=== PATIENT | female | born 1955 | race Caucasian/White ===

== ENCOUNTER 2020-11-03 10:38 | Emergency (ER) | payer MEDICARE, BC ==
--- NOTE | 2020-11-03 11:43 | EDM.PDOC ---
ED HPI GENERAL MEDICAL PROBLEM - General Chief Complaint: Eye Problems Stated Complaint: INFECTION IN OS EYE Time Seen by Provider: 11/03/20 11:30 Source of Information: Reports: Patient, Family History Limitations: Reports: No Limitations - History of Present Illness INITIAL COMMENTS - FREE TEXT/NARRATIVE: 65-year-old female with worsening vision in her left eye. It started with a scratchy sensation and mild redness last week, she was seen in the clinic and put on antibiotic ointment. The scratchy sensation has improved but her vision has slowly become "milky and cloudy". 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 Onset: Gradual Duration: Day(s): (3 days) Associated Symptoms: Reports: No Other Symptoms. Denies: Headaches, Nausea/Vomiting, Shortness of Breath Left Eye Pain Score (Numeric/FACES): 3 - Related Data Allergies Allergy/AdvReac Type Severity Reaction Status Date / Time No Known Allergies Allergy Verified 11/03/20 11:10 Home Meds: Home Meds Acetaminophen [Tylenol] 650 mg PO Q6H PRN 08/19/20 [History] Albuterol Sulfate [Albuterol Sulfate Hfa] 2 puff IH Q4H PRN 08/19/20 [History] Ascorbic Acid [Vitamin C] 1,000 mg PO DAILY 08/19/20 [History] Balsalazide [Colazal] 3,000 mg PO BID 08/19/20 [History] Betamethasone/Propylene Glyc [Diprolene 0.05%] 1 applic TOP BID 08/19/20 [History] Celecoxib [CeleBREX] 100 mg PO BID 08/19/20 [History] Cetirizine [ZyrTEC] 10 mg PO DAILY 08/19/20 [History] Diclofenac Sodium [Voltaren 1% Gel] 1 applic TOP QID 08/19/20 [History] Multivitamin [Multiple Vitamins] 1 tab PO DAILY 08/19/20 [History] Omeprazole Magnesium [Prilosec Otc] 20 mg PO DAILY 08/19/20 [History] Pramipexole [Mirapex] 0.5 mg PO BEDTIME 08/19/20 [History] Valsartan 160 mg PO DAILY 08/19/20 [History] amLODIPine [Norvasc] 10 mg PO DAILY 08/19/20 [History] estradioL [Estrace] 0.5 mg PO DAILY 08/19/20 [History] medroxyPROGESTERone [Provera] 10 mg PO DAILY 08/19/20 [History] Erythromycin Base [Erythromycin 0.5% Ophth Oint] 1 applic TOP QID 11/03/20 [History] Past Medical History HEENT History: Reports: Cataract, Impaired Vision Other HEENT History: right Cardiovascular History: Reports: Hypertension Respiratory History: Reports: Sleep Apnea Other Respiratory History: c-pap Gastrointestinal History: Reports: Other (See Below) Other Gastrointestinal History: crohns Genitourinary History: Reports: None [employer] History: Reports: Musculoskeletal History: Reports: Arthritis, Other (See Below) Other Musculoskeletal History: bilateral hip pain bursitis Neurological History: Reports: None Psychiatric History: Reports: None Endocrine/Metabolic History: Reports: None Hematologic History: Reports: None Immunologic History: Reports: None Oncologic (Cancer) History: Reports: None Dermatologic History: Reports: Seborrheic Dermatitis - Infectious Disease History Infectious Disease History: Reports: Chicken Pox, Measles - Past Surgical History Other HEENT Surgeries/Procedures: 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 Cardiovascular Surgical History: Reports: None GI Surgical History: Reports: Colonoscopy Female Surgical History: Reports: Tubal Ligation Musculoskeletal Surgical History: Reports: None Social & Family History - Tobacco Use Tobacco Use Status *Q: Never Tobacco User - Caffeine Use Caffeine Use: Reports: Coffee - Recreational Drug Use Recreational Drug Use: No ED ROS GENERAL - Review of Systems Review Of Systems: See Below Constitutional: Denies: Fever, Chills, Malaise HEENT: Reports: Vision Change Respiratory: Reports: No Symptoms Cardiovascular: Reports: No Symptoms GI/Abdominal: Reports: No Symptoms Skin: Reports: No Symptoms Neurological: Denies: Headache ED EXAM GENERAL W FULL EYE - Physical Exam Exam: See Below Exam Limited By: No Limitations General Appearance: Alert, No Apparent Distress Eye Exam: Bilateral Eye: EOMI, Other (Left pupil is reactive, the cornea does not look cloudy) Eyelids: Bilateral: Normal Appearance (No significant erythema or exudate from either eyelids or conjunctiva) Conjunctiva & Sclera: Bilateral: Normal Appearance Extraocular Movements: Bilateral: Intact Head: Atraumatic Respiratory/Chest: No Respiratory Distress Course - Vital Signs Last Recorded V/S: Last Vital Signs Temp 95.5 F L 11/03/20 11:06 Pulse 79 11/03/20 11:06 Resp 16 11/03/20 11:06 BP 169/78 H 11/03/20 11:06 Pulse Ox 98 11/03/20 11:06 - Re-Assessments/Exams Free Text/Narrative Re-Assessment/Exam: 11/03/20 11:43 Ophthalmology consult was obtained from [place]. 11/03/20 12:50 Dr. Magaña kindly agreed to see the patient in 1 hour in [place]. Patient was discharged for the consult. Departure - Departure Time of Disposition: 11:55 Disposition: Home, Self-Care 01 Clinical Impression: Cloudy vision - Discharge Information Instructions: Visual Disturbances Referrals: PCP,None [Primary Care Provider] - Forms: ED Department Discharge Care Plan Goals: Go directly to [place] [facility] to meet with Dr. Magaña on the [place] of the eye clinic door #8. Sepsis Event Note (ED) - Evaluation Sepsis Screening Result: No Definite Risk - Focused Exam Vital Signs: Vital Signs Temp Pulse Resp BP Pulse Ox 11/03/20 11:06 95.5 F L 79 16 169/78 H 98 11/03/20 11:02 95.5 F L 79 16 169/78 H 98
== END 2020-11-03 11:55 | disposition home or self-care (01) ==
LOC: JP.ED 10:38
DX: H53.8 Other visual disturbances (principal); I10 Essential (primary) hypertension; M19.90 Unspecified osteoarthritis, unspecified site; Z79.899 Other long term (current) drug therapy
CPT/HCPCS: 99283

== ENCOUNTER 2021-05-09 06:58 | Inpatient (IN) | payer MEDICARE, BC ==
[~2021-05-09 06:58] MED LIST: Bupivacaine 0.5% 50 ML MDV ONE; Lidocaine 1% with EPINEPHrine 1:100,000 50 ML MDV ONE; Meropenem 500 MG SDV ONE; Midazolam 1 MG/ML 2 ML SDV ONE; Propofol 200 MG/20 ML SDV ONE; fentaNYL 100 MCG/2 ML SDV ONE
[2021-05-09] MEDS ORDERED: Acetaminophen 500 MG Tab PO ONE (07:07)
[2021-05-09] MEDS ORDERED: Dextrose 5%-Lactated Ringers 1,000 ML IV SCH (07:30)
[2021-05-09] MEDS ORDERED: Rocuronium 50 MG/5 ML Vial ONE (07:44)
[2021-05-09] MEDS ORDERED: Glycopyrrolate 0.2 MG/ML 5 ML MDV ONE (07:44)
[2021-05-09] MEDS ORDERED: Ondansetron 4 MG/2 ML SDV ONE (07:44)
[2021-05-09] MEDS ORDERED: Neostigmine Methylsulfate 1 MG/ML 5 ML Syringe ONE (07:44)
[2021-05-09] MEDS ORDERED: Dexamethasone 4 MG/ML SDV ONE (07:44)
[2021-05-09] MEDS ORDERED: Succinylcholine 200 MG/10 ML MDV ONE (07:44)
[2021-05-09] MEDS ORDERED: Meropenem 500 MG in Sodium Chloride 0.9% 50 ML IV ONE (08:15)
[2021-05-09] MEDS ORDERED: Scopolamine 1.5 MG Transdermal Patch TOP ONE (08:20)
[2021-05-09] MEDS ORDERED: Ketamine 15 MG in Sodium Chloride 0.9% 19.85 ML IV ONE (08:30)
[2021-05-09] MEDS ORDERED: Ketamine 500 MG/5 ML MDV IV SCH (09:00)
[2021-05-09] MEDS ORDERED: Naloxone 0.4 MG/ML SDV IVPUSH PRN (09:23)
[2021-05-09] MEDS ORDERED: HYDROmorphone/Normal Saline 15 MG/30 ML PCA IV PRN (09:23)
[2021-05-09] MEDS ORDERED: Naloxone 0.4 MG/ML SDV IV PRN (10:00)
[2021-05-09] MEDS ORDERED: Ondansetron 4 MG/2 ML SDV IVPUSH PRN (10:44)
[2021-05-09] MEDS: Lactated Ringers 1,000 ML IV SCH ×2 (11:16→23:13)
[2021-05-09] MEDS: Ascorbic Acid 500 MG Tab PO SCH (13:17)
[2021-05-09] MEDS: Losartan 50 MG Tab PO SCH (13:18)
[2021-05-09] MEDS: Pantoprazole 40 MG Tab.CR PO SCH (13:18)
[2021-05-09] MEDS: Estradiol 0.5 MG Tab PO SCH (13:18)
[2021-05-09] MEDS: Cetirizine 10 MG Tab PO SCH (13:18)
--- NOTE | 2021-05-09 14:31 | OR ---
DATE OF PROCEDURE: 05/09/2021 SURGEON: Leo Joe MD PREOPERATIVE DIAGNOSES: Abscess involving right upper thigh and perineum. POSTOPERATIVE DIAGNOSES: Abscesses involving the right upper thigh and perineum associated with necrotizing soft tissue infection extending down to muscular fascia and superficial muscular layer. OPERATIVE PROCEDURES: Exploration of infected area of the right upper thigh and perineum with: 1. Incision and drainage of abscess (80423). 2. Debridement of necrotizing infection involving soft tissue, extending down to including fascia and superficial musculature ([id number]). ANESTHESIA: General. INDICATIONS FOR PROCEDURE: The patient presents with roughly a 5-day history of increasing redness and pain in the uppermost thigh extending into the perineal area. The patient was admitted at this time for drainage and debridement of that region. Potential risks including bleeding, infection, injury to the nerves or blood vessels in the area, and possible need for additional debridement were gone over along with remote possibility of cardiopulmonary, septic, or hemorrhagic complications leading to were discussed, and the patient wishes to proceed. DETAILS OF PROCEDURE: The patient was taken to the operating room and placed in a supine position. After general endotracheal anesthesia was induced, she was frog-legged and a roll placed underneath the right hip. The right upper thigh and perineal area were then prepped and draped. A transversely oriented elliptical incision removing some of the overlying skin was then made and carried down through the skin and subcutaneous tissue. Creamy purulent material was then evacuated. This had some blood tinged within it as well. Two sets of cultures were obtained. Gram stain showed gram-positive cocci. Further debridement then revealed of the abscess quite a bit in the way of necrotic material, which extended down to the superficial muscular fascia and superficial aspect of musculature. All the necrotic area was debrided at this point. This allowed for a defect roughly size of a golf ball. Beyond that, there did not appear to be any further necrotic material. The wound was irrigated with meropenem and Zyvox-containing saline solution and packed open with Iodoform gauze, again soaked with meropenem and Zyvox within it, and the wound edges anesthetized with 1% lidocaine mixed with Marcaine. Procedure was concluded. The patient was taken to the recovery room in satisfactory condition. Plan will be to continue the IV antibiotics overnight, and we will re-examine the wound tomorrow to make sure there has not been any extension of necrotizing infection. Leo Joe MD /[id number]
[2021-05-09] MEDS: Acetaminophen 325 MG Tab PO SCH ×2 (15:11→19:48)
[2021-05-09] MEDS: Meropenem 500 MG in Sodium Chloride 0.9% 50 ML IV SCH ×2 (15:11→19:48)
[2021-05-09] MEDS: Celecoxib 100 MG Cap PO SCH (20:46)
[2021-05-09] MEDS: BALSALAZIDE 750 MG PO SCH (20:47)
[2021-05-09] MEDS: Pramipexole 0.5 MG Tab PO SCH (20:48)
[2021-05-09] MEDS: Linezolid 600 MG in Premix Bag 1 BAG IV SCH (20:48)
[2021-05-09] MEDS ORDERED: BALSALAZIDE 750 MG PO SCH (21:00)
[2021-05-09] MEDS ORDERED: COLAZAL PO SCH (21:00)
[2021-05-10] MEDS: Meropenem 500 MG in Sodium Chloride 0.9% 50 ML IV SCH ×4 (03:21→20:04)
[2021-05-10] MEDS: Acetaminophen 325 MG Tab PO SCH ×4 (03:24→20:13)
[2021-05-10] MEDS ORDERED: Lidocaine 1% with EPINEPHrine 1:100,000 50 ML MDV ONE (06:48)
[2021-05-10] MEDS ORDERED: Meropenem 500 MG SDV ONE (06:48)
[2021-05-10] MEDS ORDERED: Bupivacaine 0.5% 50 ML MDV ONE (06:48)
[2021-05-10] MEDS ORDERED: Glycopyrrolate 0.2 MG/ML 5 ML MDV ONE (06:57)
[2021-05-10] MEDS ORDERED: fentaNYL 250 MCG/5 ML SDV ONE (06:57)
[2021-05-10] MEDS ORDERED: Propofol 200 MG/20 ML SDV ONE (06:57)
[2021-05-10] MEDS ORDERED: Succinylcholine 200 MG/10 ML MDV ONE (06:57)
[2021-05-10] MEDS ORDERED: Dexamethasone 4 MG/ML SDV ONE (06:57)
[2021-05-10] MEDS ORDERED: Ondansetron 4 MG/2 ML SDV ONE (06:57)
[2021-05-10] MEDS ORDERED: Neostigmine Methylsulfate 1 MG/ML 5 ML Syringe ONE (06:57)
[2021-05-10] MEDS ORDERED: Rocuronium 50 MG/5 ML Vial ONE (06:57)
[2021-05-10] MEDS ORDERED: Bupivacaine 0.5% 50 ML MDV INJECT ONE (07:40)
[2021-05-10] MEDS ORDERED: Lactated Ringers 1,000 ML ONE (07:42)
[2021-05-10] MEDS ORDERED: amLODIPine 5 MG Tab PO SCH (09:00)
[2021-05-10] MEDS ORDERED: Fluticasone Propionate Nasal Spray 16 GM Bottle NASBOTH SCH (09:00)
[2021-05-10] MEDS: Estradiol 0.5 MG Tab PO SCH (09:48)
[2021-05-10] MEDS: Ascorbic Acid 500 MG Tab PO SCH (09:48)
[2021-05-10] MEDS: Losartan 50 MG Tab PO SCH (09:49)
[2021-05-10] MEDS: Pantoprazole 40 MG Tab.CR PO SCH (09:49)
[2021-05-10] MEDS: Celecoxib 100 MG Cap PO SCH ×2 (09:50→20:07)
[2021-05-10] MEDS: BALSALAZIDE 750 MG PO SCH ×3 (09:52→20:08)
[2021-05-10] MEDS: Linezolid 600 MG in Premix Bag 1 BAG IV SCH ×2 (09:53→21:08)
[2021-05-10] MEDS: Cetirizine 10 MG Tab PO SCH (09:53)
[2021-05-10] MEDS: Pramipexole 0.5 MG Tab PO SCH (20:07)
[2021-05-10] MEDS: Lactated Ringers 1,000 ML IV SCH (21:08)
[2021-05-11] MEDS: Acetaminophen 325 MG Tab PO SCH (02:22)
[2021-05-11] MEDS: Meropenem 500 MG in Sodium Chloride 0.9% 50 ML IV SCH ×2 (02:22→08:35)
[2021-05-11] MEDS: Pantoprazole 40 MG Tab.CR PO SCH (08:35)
--- NOTE | 2021-05-11 11:19 | DISCH ---
FINAL DIAGNOSIS: Necrotizing infection, right upper thigh extending into perineum. SECONDARY DIAGNOSES: 1. History of hypertension. 2. Obstructive sleep apnea. 3. History of Crohn disease. 4. Restless legs syndrome. OPERATIVE PROCEDURE: Done on 05/09, incision and drainage of abscess and debridement of associated necrotizing soft tissue infection, right upper thigh extending into perineum. Done on 05/10, inspection of wound with additional debridement of necrotizing soft tissue infection, right upper thigh extending into perineum. SUMMARY: This is a 65-year-old female, presenting with roughly 4-day history of increasing discomfort uppermost right inner thigh and perineal area. She was seen in the [facility] on 05/[facility]. There were no beds available in the region. She was started on antibiotics overnight and then presented for drainage and debridement of the process on 05/09. This was an area of focal necrotic tissue, which extended roughly 2 inches superiorly from the point where it is presenting at the skin level, not very high, but most in the right thigh with extension of the infection into the perineum. This was debrided. Cultures were obtained, which showed Staph aureus, which is sensitive to everything on the panel other than for erythromycin. On the second day, the patient underwent an additional inspection of the wound with debridement of some additional necrotic material. Inspection of the wound this morning shows no additional necrotic material, and the surrounding cellulitis is well controlled. She has been on meropenem and Zyvox with the latter obviously Staph aureus. The patient and her fiance were instructed regarding wound care and she will be discharged home with b.i.d. dressing changes as well as additionally as necessary, and we will send her with her usual medications plus Cipro 500 mg p.o. b.i.d. x7 days and she has not needed anything for pain postoperatively, so Tylenol will be what she can use should there be any discomfort with dressing changes and such. Followup will be with Dr. Joe at [facility]] on 05/14 for a wound check and she is instructed to call should she have any questions in the interim. /[id number]
--- NOTE | 2021-05-11 11:49 | OR ---
DATE OF PROCEDURE: 05/10/2021 SURGEON: Leo Joe MD PREOPERATIVE DIAGNOSIS: Necrotizing infection involving right upper thigh and perineum. POSTOPERATIVE DIAGNOSIS: Necrotizing infection involving right upper thigh and perineum. OPERATIVE PROCEDURE: Debridement of necrotizing infection involving right upper thigh and perineum (59702). ANESTHESIA: General. INDICATIONS FOR PROCEDURE: The patient is status post major debridement of a necrotizing infection involving the right upper thigh and perineum yesterday. She is now to undergo a second look today with additional debridement as necessary. Potential risks including bleeding and infection, additional cosmetic or functional deformity were reviewed, and the patient wishes to proceed. DETAILS OF PROCEDURE: The patient was taken to the operating room and after general endotracheal anesthesia was induced, was placed with the right leg in a frog-legged position and a roll underneath the right hip. The previous dressing was taken down. There were some scattered additional necrotic material involving the subcutaneous tissue, fascia, and superficial musculature. This debridement was then accomplished until there was no additional necrotic tissue present. At that point, the wound was irrigated with antibiotic- containing saline solution, and anesthetized with 1% lidocaine mixed with Marcaine, and the wound packed with iodoform gauze. Plan at this point will be to do a dressing change at the bedside tomorrow assuming there is no progression of the necrosis. She will likely be able to be discharged home on oral antibiotics. Leo Joe MD /[id number]
--- NOTE | 2021-05-11 11:49 | PN ---
DATE OF SERVICE: 05/10/2021 The patient has been afebrile with stable vital signs, much less discomfort overnight related to the debridement yesterday. Plan will be to proceed with inspection of the wound and debridement as necessary today. Potential risks of procedure including bleeding, infection, and some functional and cosmetic deformity were reviewed, and the patient wishes to proceed. Leo Joe MD /[id number]
--- NOTE | 2021-05-12 14:14 | PCM.EKG ---
#1 Interpretation EKG Date: 05/09/21 Time: 07:22 Rhythm: NSR Rate (Beats/Min): 67 [place]: Normal P-Wave: Present QRS: Normal ST-T: Normal QT: Normal SC/PQ Interval: normal Comparison: NA - No Prior EKG
== END 2021-05-11 09:00 | disposition home or self-care (01) | DRG 571 ==
LOC: JP.SDS 06:58 → JP.MS 09:05
PROVIDERS: ADMIT Surgery; ATTEND Surgery
PROC: 0JBL0ZZ Excision of Right Upper Leg Subcutaneous Tissue and Fascia, Open Approach (ICD-10-PCS; principal; 2021-05-09)
PROC: 0JBB0ZZ Excision of Perineum Subcutaneous Tissue and Fascia, Open Approach (ICD-10-PCS; 2021-05-09)
PROC: 0JBL0ZZ Excision of Right Upper Leg Subcutaneous Tissue and Fascia, Open Approach (ICD-10-PCS; 2021-05-10)
PROC: 0JBB0ZZ Excision of Perineum Subcutaneous Tissue and Fascia, Open Approach (ICD-10-PCS; 2021-05-10)
DX: L02.415 Cutaneous abscess of right lower limb (principal); L02.215 Cutaneous abscess of perineum; I96 Gangrene, not elsewhere classified; G47.33 Obstructive sleep apnea (adult) (pediatric); I10 Essential (primary) hypertension; G25.81 Restless legs syndrome; K21.9 Gastro-esophageal reflux disease without esophagitis; L03.115 Cellulitis of right lower limb; Z20.822 Contact with and (suspected) exposure to COVID-19; N90.89 Other specified noninflammatory disorders of vulva and perineum; Z79.899 Other long term (current) drug therapy
CPT/HCPCS: 36415; 80053; 83735; 84100; 85027; 87070; 87075; 87077; 87186; 87205; 88304; 93005; 94762; A9270-GY; J0330; J1100; J1170; J2020; J2185; J2250; J2405; J2704; J2710; J3010; J3490; J7120; J7121; U0002

== ENCOUNTER → 2024-02-18 | Day surgery (SDC) | payer MEDICARE ==
[~2024-02-18] MED LIST changes: -Bupivacaine 0.5% 50 ML MDV ONE; +Dexamethasone 4 MG/ML SDV ONE; -Lidocaine 1% with EPINEPHrine 1:100,000 50 ML MDV ONE; -Meropenem 500 MG SDV ONE; -Midazolam 1 MG/ML 2 ML SDV ONE; +Ondansetron 4 MG/2 ML SDV ONE; -fentaNYL 100 MCG/2 ML SDV ONE; +fentaNYL 50 MCG/ML SDV ONE
[2024-02-18] MEDS: Lactated Ringers 1,000 ML IV SCH (08:29)
== END ==
LOC: JP.SDS 06:58
PROVIDERS: ATTEND Surgery
DX: K50.10 Crohn's disease of large intestine without complications (principal); K57.30 Diverticulosis of large intestine without perforation or abscess without bleeding; G47.33 Obstructive sleep apnea (adult) (pediatric); I10 Essential (primary) hypertension
CPT/HCPCS: 00811; 45380; J1100; J2405; J2704; J3010; J7120